=== PATIENT | female | born 1945 | race Caucasian/White ===

== ENCOUNTER 2022-04-23 20:13 | Emergency (ER) | payer BC, SELFPAY ==
[2022-04-23 20:16] VITALS: BP 143/99; PULSE 88; RESP 16; TEMP 36.7; O2SAT 98
--- NOTE | 2022-04-23 20:53 | ED.EAR ---
HPI - Ear Problem General Chief complaint: Ear Stated complaint: ear fullness Time Seen by Provider: 04/23/22 20:40 History of Present Illness HPI Narrative: 77-year-old female here for evaluation of right ear pain for the past 5 days. Patient states that she was seen in urgent care facility upon symptom onset and had her left ear irrigated with transient improvement of her symptoms but over the past several days her right ear has become full with decreased hearing. Also notes sinus congestion. No fevers or chills, nausea or vomiting, shortness of breath or cough. Related Data Allergies Allergy/AdvReac Type Severity Reaction Status Date / Time No Known Allergies Allergy Verified 04/23/22 21:09 Review of Systems Review of Systems: Gen.: Denies fevers or chills Eyes: Denies eye pain or visual change ENT: Reports congestion and right ear pain Respiratory: Denies shortness of breath or cough CV: Denies chest pain or palpitations GI: Denies abdominal pain nausea, emesis or diarrhea denies burning, urgency, frequency or hematuria Musculoskeletal: Denies back pain or muscle pain Neuro: Denies numbness, tingling, weakness or focal weakness Skin: Denies rash Except as documented, all other systems reviewed and negative Exam Narrative: APPEARANCE: Well appearing, no pain in distress, well-nourished. Head: Normocephalic and atraumatic. EYES: PERRLA/EOMI, conjunctivae clear NOSE: No nasal drainage EARS: Cerumen impaction on the right, left ear canal has numerous superficial abrasions, TM itself appears clear. After cerumen was removed on the right her TM appears bulging and injected THROAT: Oropharynx is clear. Mucous membranes are moist. NECK: Supple. No adenopathy, no masses. RESPIRATORY: Airway patent, respirations nonlabored. Clear to auscultation bilaterally, no rales, rhonchi, wheezing. CARDIOVASCULAR: Regular rate and rhythm without murmurs, rubs, or gallops. ABDOMINAL: Normoactive bowel sounds. Soft, nontender, nondistended. No rebound tenderness or guarding. MUSCULOSKELETAL: Extremities are warm and well-perfused. Moves all extremities well. No edema. NEURO: Normal speech. No focal neurologic deficits. SKIN: Skin is warm and dry. No rashes. PSYCHIATRIC: Normal affect/mood. Course Vital Signs Vital signs: Vital Signs Temperature 98.1 F 03/11/23 20:16 Pulse Rate 88 04/23/22 20:16 Respiratory Rate 16 04/23/22 20:16 Blood Pressure 143/99 H 04/23/22 20:16 Pulse Oximetry 98 04/23/22 20:16 Oxygen Delivery Room Air 04/23/22 20:16 Temperature 98.1 F 04/23/22 20:16 Pulse Rate 88 04/23/22 20:16 Respiratory Rate 16 04/23/22 20:16 Blood Pressure 143/99 H 04/23/22 20:16 Pulse Oximetry 98 04/23/22 20:16 Oxygen Delivery Room Air 04/23/22 20:16 Medical Decision Making MDM Narrative Medical decision making narrative: 77-year-old female here for evaluation of sinus congestion and bilateral ear fullness and pain for the past several days, recently had her ears irrigated at urgent care facility. Patient has a cerumen impaction on the right, her left ear canal has superficial abrasions that may be contributing to her pain on that side. Patient's ears were irrigated and her TM on the right does appear infected. No mastoid tenderness. Will D/C home with antibiotics and Flonase, provided with ENT follow-up if her symptoms persist. Return precautions were discussed and she voiced understanding. Vital Signs Vital Signs: Vital Signs Temperature 98.1 F 04/23/22 20:16 Pulse Rate 88 04/23/22 20:16 Respiratory Rate 16 04/23/22 20:16 Blood Pressure 143/99 H 04/23/22 20:16 Pulse Oximetry 98 04/23/22 20:16 Oxygen Delivery Room Air 04/23/22 20:16 Temperature 98.1 F 04/23/22 20:16 Pulse Rate 88 04/23/22 20:16 Respiratory Rate 16 04/23/22 20:16 Blood Pressure 143/99 H 04/23/22 20:16 Pulse Oximetry 98 04/23/22 20:16 Oxygen Delivery Room Air 04/23/22 20:16
[2022-04-23] MEDS: CARBAMIDE PEROXIDE 6.5% OT SOLN 15 ML BTL 5 DROP EACH EAR (21:10)
--- NOTE | 2022-04-23 21:46 | PC.NURSE ---
R ear irrigated and small ball of soft wax removed.
== END 2022-04-23 21:59 | disposition home or self-care (01) ==
PROVIDERS: Emergency Provider Physician Assistant
DX: H66.91 Otitis media, unspecified, right ear (principal)
CPT/HCPCS: 99283; A9270